=== PATIENT | male | born 1960 | race African-American/Black ===

== ENCOUNTER 2018-05-20 18:20 | Inpatient (IN) ==
[2018-05-20] MEDS ORDERED: ALBUTEROL/IPRATROPIUM 3 ML NEB RESP TX STA (18:46)
[2018-05-20] MEDS ORDERED: FUROSEMIDE 100 MG/10 ML VIAL IV STA (18:46)
[2018-05-20] MEDS ORDERED: methylPREDNISolone SOD SUC 125 MG/2 ML VIAL IV STA (18:46)
[2018-05-20] MEDS ORDERED: ONDANSETRON 4 MG/2 ML VIAL IV STA (18:46)
[2018-05-20] MEDS ORDERED: NITROGLYCERIN 2% OINT 1 INCH/GM PACK TOP STA (18:46)
[2018-05-20] MEDS ORDERED: MORPHINE 4 MG/1 ML VIAL IV STA (18:46)
[2018-05-20] MEDS ORDERED: DILTIAZEM 50 MG/10 ML VIAL IV STA (18:46)
[2018-05-20 18:56] LABS: Basophils % 0.5 % (0.0-0.8); Eosinophils % 0.5 % (0.00-10.9); Hematocrit 48.7 VOL% (42.0-52.0); Hemoglobin 16.3 GM/DL (14.0-18.0); Immature Granulocytes % 0.3 %; Immature Granulocytes Absolute 0.03 #; Lymphocytes # 2.8 10*3/uL (1.4-4.0); Mean Corpuscular HGB Conc 33.5 GM/DL (32-36); Mean Corpuscular Hemoglobin 30 PG (27-34); Mean Corpuscular Volume 90.9 FL (87-102); Mean Platelet Volume 11.3 FL (9.6-12.0); Monocytes % 11.7 % (1.7-12.7); Neutrophils # 4.8 10*3/uL (1.4-7.4); Platelet Count 224 T/CUMM (130-400); Red Blood Count 5.36 MC/CUMM (3.8-5.5); Red Cell Distribution Width 14.9 % (9.3-17.3); White Blood Count 8.7 T/CUMM (4-12)
[2018-05-20 19:10] LABS: INR 1.1; PT Patient Result 11.5 SECS
[2018-05-20 19:25] LABS: Albumin 3.1 G/DL (3.4-5.0); Bilirubin,Total 1.2 MG/DL (0.2-1.0); Calcium 8.9 MG/DL (8.5-10.1); Osmolality,Calculated 275.5 MOS/KG (273-304); Potassium 4.1 MMOL/L (3.5-5.1); Total Protein 7.9 G/DL (6.4-8.3)
[2018-05-20 19:27] LABS: Troponin I Only 0.131 NG/ML (0.00-0.045)
[2018-05-20 20:18] LABS: Apearance,Urine CLEAR (Clear); Bacteria,Urine Occasional /HPF (Few); Bilirubin,Urine Negative (Negative); Blood, Urine Small mg/dL (Negative); Glucose,Urine (UA) Negative (Negative); Ketones,Urine Negative (Negative); Nitrite,Urine Negative (Negative); Protein,Urine 100 MG/DL; RBC,Urine 1 /HPF (0-4); Urine Color Straw (Yellow); Urine Specific Gravity 1.004 (1.001-1.035); Urine Urobilinogen < 2.0 EU/DL (0.2-1.0); WBC,Urine <1 /HPF (0-6)
[2018-05-20 20:28] LABS: Barbiturates Screen,Urine Negative (Negative); Benzodiazepines Screen,Urine Negative (Negative); Cannabinoid Screen,Urine Positive (Negative); Opiate Screen,Urine Negative (Negative); Phencyclidine Screen,Urine Negative (Negative)
[2018-05-21] MEDS ORDERED: cloNIDine 0.1 MG TABLET PO PRN (00:03)
[2018-05-21] MEDS ORDERED: ZALEPLON 5 MG CAPSULE PO PRN (01:07)
[2018-05-21] MEDS ORDERED: ACETAMINOPHEN 325 MG TABLET PO PRN (01:07)
[2018-05-21] MEDS ORDERED: ONDANSETRON 4 MG/2 ML VIAL IV PRN (01:07)
[2018-05-21] MEDS ORDERED: MORPHINE 4 MG/1 ML VIAL IV PRN (01:07)
[2018-05-21] MEDS ORDERED: DOCUSATE SODIUM 100 MG CAPSULE PO PRN (01:07)
[2018-05-21 02:57] LABS: Basophils % 0.1 % (0.0-0.8); Hematocrit 46.6 VOL% (42.0-52.0); Hemoglobin 15.7 GM/DL (14.0-18.0); Immature Granulocytes % 0.7 %; Immature Granulocytes Absolute 0.05 #; Lymphocytes # 0.8 10*3/uL (1.4-4.0); Lymphocytes % 11.9 % (21.2-54.2); Mean Corpuscular HGB Conc 33.7 GM/DL (32-36); Mean Corpuscular Hemoglobin 31 PG (27-34); Mean Corpuscular Volume 91.4 FL (87-102); Mean Platelet Volume 11.6 FL (9.6-12.0); Monocytes # 0.1 10*3/uL (0.11-0.8); Monocytes % 1.7 % (1.7-12.7); Neutrophils % 85.6 % (38.7-73.9); Platelet Count 198 T/CUMM (130-400); Red Cell Distribution Width 14.8 % (9.3-17.3)
[2018-05-21 03:43] LABS: Calcium 8.6 MG/DL (8.5-10.1); Osmolality,Calculated 286.4 MOS/KG (273-304); Potassium 3.4 MMOL/L (3.5-5.1); Thyroid Stimulating Hormone 0.226 uIU/ml (0.358-3.74)
[2018-05-21 04:20] LABS: Hepatitis A Ab IgM Quant 0.21 Index; Hepatitis A Ab IgM Result Negative (Negative); Hepatitis B Core IgM Quant 0.16 Index; Hepatitis B Core IgM Result Negative (Negative); Hepatitis B Surface Ag Quant < 0.10 Index; Hepatitis B Surface Ag Result Negative (Negative); Hepatitis C Virus Ab Quant 0.12 Index; Hepatitis C Virus Ab Result Negative (Negative)
[2018-05-21] MEDS ORDERED: CARVEDILOL 3.125 MG TABLET PO SCH (08:00)
[2018-05-21] MEDS ORDERED: ENOXAPARIN 40 MG/0.4 ML SYRINGE SUBCUT SCH (09:00)
[2018-05-21] MEDS ORDERED: ASPIRIN EC 325 MG TABLET PO SCH (09:00)
[2018-05-21] MEDS: PANTOPRAZOLE 40 MG TABLET PO SCH (09:44)
[2018-05-21] MEDS: amLODIPine 5 MG TABLET PO SCH (09:44)
[2018-05-21] MEDS: FUROSEMIDE 40 MG/4 ML VIAL IV SCH ×2 (09:48→17:04)
[2018-05-21] MEDS: POTASSIUM CHLORIDE 20 MEQ TABLET PO PRN (09:53)
[2018-05-21] MEDS ORDERED: ENOXAPARIN 60 MG/0.6 ML SYRINGE SUBCUT ONE (11:00)
[2018-05-21] MEDS: NICOTINE 21 MG/24 HR PATCH TRANSDERM SCH (14:02)
[2018-05-21] MEDS: ASCORBIC ACID 500 MG TABLET PO SCH ×2 (14:03→20:14)
[2018-05-21] MEDS: POTASSIUM CHLORIDE RIDER 10 MEQ in PREMIX 1 EACH IV PRN ×3 (14:55→20:12)
[2018-05-21] MEDS ORDERED: CARVEDILOL 6.25 MG TABLET PO SCH (17:00)
[2018-05-21] MEDS: APIXABAN 5 MG TABLET PO SCH (20:13)
[2018-05-22] MEDS: FUROSEMIDE 40 MG/4 ML VIAL IV SCH ×2 (08:27→17:14)
[2018-05-22] MEDS: CARVEDILOL 12.5 MG TABLET PO SCH ×2 (08:50→17:31)
[2018-05-22] MEDS: APIXABAN 5 MG TABLET PO SCH ×2 (08:50→20:03)
[2018-05-22] MEDS: ASPIRIN EC 81 MG TABLET PO SCH (08:50)
[2018-05-22] MEDS: ASCORBIC ACID 500 MG TABLET PO SCH ×2 (08:50→20:03)
[2018-05-22] MEDS: amLODIPine 5 MG TABLET PO SCH (08:50)
[2018-05-22] MEDS: NICOTINE 21 MG/24 HR PATCH TRANSDERM SCH (09:00)
[2018-05-22 09:01] LABS: Osmolality,Calculated 283.4 MOS/KG (273-304); Potassium 4.4 MMOL/L (3.5-5.1)
[2018-05-22] MEDS: PANTOPRAZOLE 40 MG TABLET PO SCH (09:05)
[2018-05-23 02:55] LABS: Calcium 8.8 MG/DL (8.5-10.1); Osmolality,Calculated 279.7 MOS/KG (273-304); Potassium 3.8 MMOL/L (3.5-5.1)
[2018-05-23 02:59] LABS: Albumin 2.7 G/DL (3.4-5.0); Bilirubin,Direct 0.32 MG/DL (0.0-0.20); Bilirubin,Indirect 0.7 MG/DL (0.0-1.0); Total Protein 6.9 G/DL (6.4-8.3)
[2018-05-23] MEDS: FUROSEMIDE 40 MG/4 ML VIAL IV SCH (08:48)
[2018-05-23] MEDS: POTASSIUM CHLORIDE 20 MEQ TABLET PO PRN (08:50)
[2018-05-23] MEDS: ASPIRIN EC 81 MG TABLET PO SCH (08:50)
[2018-05-23] MEDS: CARVEDILOL 12.5 MG TABLET PO SCH (08:50)
[2018-05-23] MEDS: amLODIPine 5 MG TABLET PO SCH (08:51)
[2018-05-23] MEDS: APIXABAN 5 MG TABLET PO SCH (08:51)
[2018-05-23] MEDS: PANTOPRAZOLE 40 MG TABLET PO SCH (08:51)
[2018-05-23] MEDS: ASCORBIC ACID 500 MG TABLET PO SCH (08:51)
[2018-05-23] MEDS: NICOTINE 21 MG/24 HR PATCH TRANSDERM SCH (08:51)
[2018-05-23 12:30] VITALS: BP 98/73
== END 2018-05-23 17:10 | disposition home or self-care (01) | DRG 292 ==
LOC: N.ED 18:20 → N.EDINP 21:05 → SUATTDRO 21:05 → N.TELEN 22:41
PROVIDERS: ADMIT Internal Medicine; ATTEND Hospitalist

== ENCOUNTER 2019-05-13 14:48 | Inpatient (IN) ==
[2019-05-13 15:57] LABS: Basophils % 0.3 % (0.0-0.8); Eosinophils # 0.1 10*3/uL (0.0-0.87); Eosinophils % 0.9 % (0.00-10.9); Hematocrit 45.3 VOL% (42.0-52.0); Hemoglobin 14.8 GM/DL (14.0-18.0); Immature Granulocytes % 0.7 %; Immature Granulocytes Absolute 0.07 #; Lymphocytes # 1.7 10*3/uL (1.4-4.0); Mean Corpuscular HGB Conc 32.7 GM/DL (32-36); Mean Corpuscular Volume 91.3 FL (87-102); Mean Platelet Volume 10.5 FL (9.6-12.0); Monocytes % 14.7 % (1.7-12.7); Neutrophils % 67.4 % (38.7-73.9); Platelet Count 206 T/CUMM (130-400); Red Blood Count 4.96 MC/CUMM (3.8-5.5); White Blood Count 10.4 T/CUMM (4-12)
[2019-05-13 16:10] LABS: Bilirubin,Total 0.8 MG/DL (0.2-1.0); Calcium 9.3 MG/DL (8.5-10.1); Osmolality,Calculated 282.4 MOS/KG (273-304); Total Protein 7.7 G/DL (6.4-8.3)
[2019-05-13] MEDS ORDERED: LEVOFLOXACIN INJ 500 MG in PREMIX 1 EACH IV STA (18:37)
[2019-05-13] MEDS ORDERED: VANCOMYCIN INJ 1,000 MG in SODIUM CHLORIDE 0.9% 250 ML IV STA (19:09)
[2019-05-13] MEDS ORDERED: CLINDAMYCIN INJ 900 MG in PREMIX 1 EACH IV ONE (22:16)
[2019-05-13] MEDS ORDERED: ACETAMINOPHEN 325 MG TABLET PO PRN (22:41)
[2019-05-13] MEDS ORDERED: guaiFENesin/DM ER 600-30 MG TABLET PO PRN (22:41)
[2019-05-13] MEDS ORDERED: ONDANSETRON 4 MG/2 ML VIAL IV PRN (22:41)
[2019-05-13] MEDS ORDERED: DOCUSATE SODIUM 100 MG CAPSULE PO PRN (22:41)
[2019-05-13] MEDS ORDERED: tiZANidine 4 MG TABLET PO PRN (22:48)
[2019-05-13] MEDS ORDERED: VANCOMYCIN INJ 1,000 MG in SODIUM CHLORIDE 0.9% 250 ML IV ONE (23:30)
[2019-05-14] MEDS ORDERED: hydrALAZINE 20 MG/1 ML VIAL IV ONE (00:03)
[2019-05-14] MEDS: PIPERACILLIN/TAZOBACTAM 3,375 MG in SODIUM CHLORIDE 0.9% 100 ML IV SCH ×2 (01:13→17:16)
[2019-05-14 03:58] LABS: Basophils % 0.3 % (0.0-0.8); Eosinophils # 0.1 10*3/uL (0.0-0.87); Hematocrit 42.6 VOL% (42.0-52.0); Hemoglobin 14.3 GM/DL (14.0-18.0); Immature Granulocytes % 0.4 %; Immature Granulocytes Absolute 0.04 #; Lymphocytes # 1.2 10*3/uL (1.4-4.0); Lymphocytes % 13.4 % (21.2-54.2); Mean Corpuscular HGB Conc 33.6 GM/DL (32-36); Mean Corpuscular Volume 90.3 FL (87-102); Mean Platelet Volume 10.2 FL (9.6-12.0); Monocytes % 17.4 % (1.7-12.7); Neutrophils % 67.5 % (38.7-73.9); Platelet Count 213 T/CUMM (130-400); Red Blood Count 4.72 MC/CUMM (3.8-5.5); Red Cell Distribution Width 14.9 % (9.3-17.3); White Blood Count 9.3 T/CUMM (4-12)
[2019-05-14 04:26] LABS: Calcium 8.9 MG/DL (8.5-10.1); Osmolality,Calculated 285.1 MOS/KG (273-304)
[2019-05-14 04:34] LABS: Eosinophils 1 % (0-10); Lymphocytes 13 % (20-55); Segmented Neutrophils 70 % (50-85)
[2019-05-14 04:35] LABS: Platelet Estimate Normal; Reactive Lymphocytes 2+; Total Cells Counted 100
[2019-05-14] MEDS: ATORVASTATIN 20 MG TABLET PO SCH (08:00)
[2019-05-14] MEDS: CARVEDILOL 12.5 MG TABLET PO SCH ×2 (08:00→17:16)
[2019-05-14] MEDS: hydrALAZINE 20 MG/1 ML VIAL IV PRN ×2 (08:02→17:18)
[2019-05-14] MEDS: amLODIPine 5 MG TABLET PO SCH (09:00)
[2019-05-14] MEDS: ASPIRIN EC 81 MG TABLET PO SCH (09:00)
[2019-05-14] MEDS: LISINOPRIL 10 MG TABLET PO SCH (09:00)
[2019-05-14] MEDS: FUROSEMIDE 40 MG TABLET PO SCH (09:00)
[2019-05-14] MEDS ORDERED: LABETALOL 20 MG/4 ML SYRINGE IV PRN (10:08)
[2019-05-14] MEDS: VANCOMYCIN INJ 1,500 MG in SODIUM CHLORIDE 0.9% 500 ML IV SCH (13:13)
[2019-05-14] MEDS ORDERED: CLINDAMYCIN INJ 900 MG in PREMIX 1 EACH IV ONE (15:00)
[2019-05-14] MEDS ORDERED: LIDOCAINE 1% 20 ML VIAL ONE (15:34)
[2019-05-14] MEDS ORDERED: fentaNYL 100 MCG/2 ML VIAL ONE (16:23)
[2019-05-14] MEDS ORDERED: MIDAZOLAM 2 MG/2 ML VIAL ONE (16:23)
[2019-05-14] MEDS ORDERED: PROPOFOL 200 MG/20 ML VIAL IV ONE (16:23)
[2019-05-14] MEDS: PANTOPRAZOLE 40 MG TABLET PO SCH (17:02)
[2019-05-14] MEDS: ENOXAPARIN 40 MG/0.4 ML SYRINGE SUBCUT SCH (17:17)
[2019-05-14] MEDS: HYDROmorphone 2 MG/1 ML VIAL IV PRN ×2 (17:20→21:59)
[2019-05-15] MEDS: PIPERACILLIN/TAZOBACTAM 3,375 MG in SODIUM CHLORIDE 0.9% 100 ML IV SCH ×3 (01:44→19:50)
[2019-05-15] MEDS: HYDROmorphone 2 MG/1 ML VIAL IV PRN ×3 (03:59→19:53)
[2019-05-15] MEDS: CARVEDILOL 12.5 MG TABLET PO SCH ×2 (09:12→16:39)
[2019-05-15] MEDS: FUROSEMIDE 40 MG TABLET PO SCH (09:12)
[2019-05-15] MEDS: ATORVASTATIN 20 MG TABLET PO SCH (09:12)
[2019-05-15] MEDS: ASPIRIN EC 81 MG TABLET PO SCH (09:12)
[2019-05-15] MEDS: ENOXAPARIN 40 MG/0.4 ML SYRINGE SUBCUT SCH (09:12)
[2019-05-15] MEDS: PANTOPRAZOLE 40 MG TABLET PO SCH (09:12)
[2019-05-15] MEDS: amLODIPine 5 MG TABLET PO SCH ×2 (09:12→10:51)
[2019-05-15] MEDS: LISINOPRIL 10 MG TABLET PO SCH (09:12)
[2019-05-15] MEDS: VANCOMYCIN INJ 1,500 MG in SODIUM CHLORIDE 0.9% 500 ML IV SCH (12:00)
[2019-05-15] MEDS ORDERED: VANCOMYCIN INJ 2,000 MG in SODIUM CHLORIDE 0.9% 500 ML IV ONE (13:30)
[2019-05-16] MEDS: VANCOMYCIN INJ 1,500 MG in SODIUM CHLORIDE 0.9% 500 ML IV SCH ×2 (01:50→14:33)
[2019-05-16] MEDS: hydrALAZINE 20 MG/1 ML VIAL IV PRN (04:40)
[2019-05-16] MEDS: PIPERACILLIN/TAZOBACTAM 3,375 MG in SODIUM CHLORIDE 0.9% 100 ML IV SCH ×2 (04:40→11:03)
[2019-05-16] MEDS: HYDROmorphone 2 MG/1 ML VIAL IV PRN (08:00)
[2019-05-16] MEDS: FUROSEMIDE 40 MG TABLET PO SCH (08:38)
[2019-05-16] MEDS: amLODIPine 5 MG TABLET PO SCH (08:38)
[2019-05-16] MEDS: ATORVASTATIN 20 MG TABLET PO SCH (08:39)
[2019-05-16] MEDS: CARVEDILOL 12.5 MG TABLET PO SCH (08:39)
[2019-05-16] MEDS: ASPIRIN EC 81 MG TABLET PO SCH (08:39)
[2019-05-16] MEDS: ENOXAPARIN 40 MG/0.4 ML SYRINGE SUBCUT SCH (08:39)
[2019-05-16] MEDS: LISINOPRIL 10 MG TABLET PO SCH (08:39)
[2019-05-16] MEDS: PANTOPRAZOLE 40 MG TABLET PO SCH (08:39)
[2019-05-16 11:37] VITALS: BP 149/88
== END 2019-05-16 16:39 | disposition home health service (06) | DRG 501 ==
LOC: N.ED 14:48 → N.EDINP 22:41 → SUATTDRO 22:41 → N.3E 23:21
PROVIDERS: ADMIT Hospitalist; ATTEND Internal Medicine

== ENCOUNTER 2019-09-15 15:17 | Observation (INO) ==
[2019-09-15] MEDS ORDERED: ONDANSETRON ODT 4 MG TABLET PO STA (16:00)
[2019-09-15] MEDS ORDERED: LABETALOL 20 MG/4 ML SYRINGE IV STA (16:04)
[2019-09-15 16:40] LABS: Basophils % 0.3 % (0.0-0.8); Eosinophils # 0.1 10*3/uL (0.0-0.87); Eosinophils % 1.1 % (0.00-10.9); Hematocrit 50.8 VOL% (42.0-52.0); Hemoglobin 16.9 GM/DL (14.0-18.0); Immature Granulocytes % 0.5 %; Immature Granulocytes Absolute 0.05 #; Lymphocytes # 1.7 10*3/uL (1.4-4.0); Lymphocytes % 15.1 % (21.2-54.2); Mean Corpuscular HGB Conc 33.3 GM/DL (32-36); Mean Corpuscular Volume 94.4 FL (87-102); Mean Platelet Volume 9.8 FL (9.6-12.0); Monocytes % 8.2 % (1.7-12.7); Neutrophils % 74.8 % (38.7-73.9); Platelet Count 214 T/CUMM (130-400); Red Blood Count 5.38 MC/CUMM (3.8-5.5); Red Cell Distribution Width 15.2 % (9.3-17.3); White Blood Count 10.9 T/CUMM (4-12)
[2019-09-15] MEDS ORDERED: ONDANSETRON 4 MG/2 ML VIAL ONE (16:53)
[2019-09-15 16:55] LABS: Calcium 9.1 MG/DL (8.5-10.1); Osmolality,Calculated 280.5 MOS/KG (273-304)
[2019-09-15] MEDS ORDERED: ONDANSETRON 4 MG/2 ML VIAL IV STA (17:00)
[2019-09-15] MEDS ORDERED: hydrALAZINE 20 MG/1 ML VIAL IV STA (19:38)
[2019-09-15] MEDS ORDERED: niCARdipine 25 MG/10 ML VIAL IV ONE (20:27)
[2019-09-15] MEDS: niCARdipine INJ 25 MG in SODIUM CHLORIDE 0.9% 240 ML IV SCH ×2 (20:35→23:37)
[2019-09-15] MEDS ORDERED: ACETAMINOPHEN 325 MG TABLET PO PRN (20:53)
[2019-09-15] MEDS ORDERED: NICOTINE 21 MG/24 HR PATCH TRANSDERM PRN (20:53)
[2019-09-15] MEDS ORDERED: diphenhydrAMINE CAP 25 MG CAPSULE PO PRN (20:53)
[2019-09-15] MEDS ORDERED: ONDANSETRON 4 MG/2 ML VIAL IV PRN (20:53)
[2019-09-15] MEDS ORDERED: traZODone 50 MG TABLET PO PRN (20:53)
[2019-09-15] MEDS ORDERED: MORPHINE 4 MG/1 ML VIAL IV PRN (20:53)
[2019-09-15] MEDS ORDERED: BISACODYL 5 MG TABLET PO PRN (20:53)
[2019-09-15] MEDS ORDERED: tiZANidine 4 MG TABLET PO PRN (22:13)
[2019-09-15] MEDS: ENOXAPARIN 40 MG/0.4 ML SYRINGE SUBCUT SCH (22:20)
[2019-09-15] MEDS: carvediloL 25 MG TABLET PO SCH (22:24)
[2019-09-15 22:29] LABS: Risk Ratio 2.87; VLDL CHOLESTEROL 21.8 MG/DL
[2019-09-16] MEDS: niCARdipine INJ 25 MG in SODIUM CHLORIDE 0.9% 240 ML IV SCH ×3 (02:17→07:50)
[2019-09-16 04:54] LABS: Albumin 3.6 G/DL (3.4-5.0); Calcium 9.1 MG/DL (8.5-10.1); Osmolality,Calculated 284.3 MOS/KG (273-304); Total Protein 7.8 G/DL (6.4-8.3)
[2019-09-16] MEDS ORDERED: cloNIDine 0.1 MG TABLET PO PRN (07:51)
[2019-09-16] MEDS: LISINOPRIL 10 MG TABLET PO SCH (08:09)
[2019-09-16] MEDS: FUROSEMIDE 40 MG TABLET PO SCH (08:09)
[2019-09-16] MEDS: ASPIRIN EC 81 MG TABLET PO SCH (08:09)
[2019-09-16] MEDS: amLODIPine 5 MG TABLET PO SCH (08:10)
[2019-09-16] MEDS: carvediloL 25 MG TABLET PO SCH ×2 (08:10→16:20)
[2019-09-16] MEDS ORDERED: DICLOFENAC SODIUM 75 MG TABLET PO PRN (09:00)
[2019-09-16 10:23] LABS: Barbiturates Screen,Urine Negative (Negative); Benzodiazepines Screen,Urine Negative (Negative); Cannabinoid Screen,Urine Positive (Negative); Opiate Screen,Urine Negative (Negative); Phencyclidine Screen,Urine Negative (Negative)
[2019-09-16] MEDS ORDERED: ATORVASTATIN 20 MG TABLET PO SCH (21:00)
[2019-09-16] MEDS: ENOXAPARIN 40 MG/0.4 ML SYRINGE SUBCUT SCH (21:56)
[2019-09-17 05:58] LABS: Troponin I 0.046 NG/ML (0.00-0.045)
[2019-09-17 06:35] LABS: Calcium 8.6 MG/DL (8.5-10.1); Osmolality,Calculated 283.3 MOS/KG (273-304)
[2019-09-17] MEDS: amLODIPine 5 MG TABLET PO SCH (08:25)
[2019-09-17] MEDS: carvediloL 25 MG TABLET PO SCH (08:25)
[2019-09-17] MEDS: ASPIRIN EC 81 MG TABLET PO SCH (08:25)
[2019-09-17] MEDS: FUROSEMIDE 40 MG TABLET PO SCH (08:26)
[2019-09-17] MEDS: LISINOPRIL 10 MG TABLET PO SCH (08:26)
[2019-09-17] MEDS ORDERED: traMADol 50 MG TABLET PO PRN (10:51)
[2019-09-17] MEDS ORDERED: amLODIPine 10 MG TABLET PO SCH (10:53)
[2019-09-17 11:38] VITALS: BP 151/93
[2019-09-17] MEDS ORDERED: POTASSIUM BICARB EFFERVESCENT 25 MEQ TABLET PO ONE (12:00)
[2019-09-18] MEDS ORDERED: LOSARTAN 50 MG TABLET PO SCH (09:00)
== END 2019-09-17 11:53 | disposition home or self-care (01) ==
LOC: EDBD → EDUNIT# → N.EDINP 15:17 → N.ED 15:17 → SUATTDRO 20:53 → N.ICU 21:56 → N.2E 09-16 14:23
PROVIDERS: ADMIT Internal Medicine; ATTEND Internal Medicine

== ENCOUNTER 2020-12-29 11:03 | Observation (INO) ==
[2020-12-29] MEDS ORDERED: ONDANSETRON 4 MG/2 ML VIAL IV STA (11:24)
[2020-12-29] MEDS ORDERED: HYDROmorphone 2 MG/1 ML VIAL IV STA ×2 (11:24→14:16)
[2020-12-29 12:00] LABS: Basophils % 0.3 % (0.0-0.8); Hematocrit 52.4 VOL% (42.0-52.0); Hemoglobin 17.5 GM/DL (14.0-18.0); Immature Granulocytes % 0.5 %; Immature Granulocytes Absolute 0.06 #; Lymphocytes % 8.2 % (21.2-54.2); Mean Corpuscular HGB Conc 33.4 GM/DL (32-36); Mean Corpuscular Volume 90.8 FL (87-102); Mean Platelet Volume 10.5 FL (9.6-12.0); Platelet Count 217 T/CUMM (130-400); Red Blood Count 5.77 MC/CUMM (3.8-5.5); Red Cell Distribution Width 14.3 % (9.3-17.3); White Blood Count 11.8 T/CUMM (4-12)
[2020-12-29 12:11] LABS: Bilirubin,Urine Negative (Negative); Blood, Urine Negative (Negative); Glucose,Urine (UA) Negative (Negative); Ketones,Urine Negative (Negative); Mucus,Urine Occasional /LPF (Occasional); Nitrite,Urine Negative (Negative); Protein,Urine >=500 MG/DL; RBC,Urine 4 /HPF (0-4); Urine Appearance CLEAR (Clear); Urine Color Yellow (Yellow); Urine Urobilinogen < 2.0 EU/DL (0.2-1.0); WBC,Urine 1 /HPF (0-6)
[2020-12-29 12:43] LABS: Alanine Aminotransferase 62 U/L (16-61); Albumin 3.4 G/DL (3.4-5.0); Alkaline Phosphatase 96 U/L (45-117); Aspartate Amino Transferase 38 U/L (0-37); Blood Urea Nitrogen 13 MG/DL (7-18); Calcium 8.8 MG/DL (8.5-10.1); Carbon Dioxide 24 MMOL/L (21-32); Estimated Glom Filtration Rate 128 ML/MIN; Glucose 127 MG/DL (74-106); Osmolality,Calculated 278.5 MOS/KG (273-304); Potassium 3.9 MMOL/L (3.5-5.1); Sodium 139 MMOL/L (136-145); Total Protein 8.2 G/DL (6.4-8.3)
[2020-12-29] MEDS ORDERED: SODIUM CHLORIDE 0.9% 1,000 ML IV STA (12:57)
[2020-12-29] MEDS ORDERED: hydrALAZINE 20 MG/1 ML VIAL IV STA ×2 (13:29→14:16)
[2020-12-29] MEDS ORDERED: MAGNESIUM SULF RIDER 4 GM in PREMIX 1 EACH IV STA (15:02)
[2020-12-29] MEDS ORDERED: cefTRIAXone 1,000 MG in SODIUM CHLORIDE 0.9% 100 ML IV STA (15:04)
[2020-12-29] MEDS ORDERED: ONDANSETRON 4 MG/2 ML VIAL IV PRN (15:27)
[2020-12-29] MEDS ORDERED: ACETAMINOPHEN 325 MG TABLET PO PRN (15:27)
[2020-12-29] MEDS ORDERED: GLUCAGON 1 MG VIAL IM PRN (15:27)
[2020-12-29] MEDS ORDERED: DEXTROSE 50% 25 GM/50 ML VIAL IV PRN (15:27)
[2020-12-29] MEDS: MAGNESIUM SULF RIDER 2 GM in PREMIX 1 EACH IV SCH ×2 (16:30→18:14)
[2020-12-29] MEDS: SODIUM CHLORIDE 0.9% 1,000 ML IV SCH (18:07)
[2020-12-29 18:50] LABS: CKMB % 5.3 %
[2020-12-29 18:51] LABS: Troponin I 0.058 NG/ML (0.00-0.045)
[2020-12-29] MEDS ORDERED: LACTULOSE 20 GM/30 ML UDCUP PO ONE (19:45)
[2020-12-29] MEDS ORDERED: LACTULOSE 20 GM/30 ML UDCUP PO PRN (19:45)
[2020-12-29] MEDS: PANTOPRAZOLE 40 MG VIAL IV SCH (21:19)
[2020-12-29] MEDS: DOCUSATE SODIUM 100 MG CAPSULE PO SCH (21:19)
[2020-12-29] MEDS: hydrALAZINE 20 MG/1 ML VIAL IV PRN (21:20)
[2020-12-29] MEDS: carvediloL 25 MG TABLET PO SCH (21:20)
[2020-12-29] MEDS: DOCUSATE SODIUM 100 MG/10 ML UDCUP PO SCH (21:39)
[2020-12-30] MEDS: hydrALAZINE 20 MG/1 ML VIAL IV PRN ×2 (03:49→23:52)
[2020-12-30 05:37] LABS: Basophils % 0.2 % (0.0-0.8); Eosinophils % 0.1 % (0.00-10.9); Hematocrit 49.6 VOL% (42.0-52.0); Hemoglobin 16.3 GM/DL (14.0-18.0); Immature Granulocytes % 0.6 %; Immature Granulocytes Absolute 0.09 #; Lymphocytes # 1.5 10*3/uL (1.4-4.0); Lymphocytes % 9.2 % (21.2-54.2); Mean Corpuscular HGB Conc 32.9 GM/DL (32-36); Mean Corpuscular Volume 93.2 FL (87-102); Monocytes % 13.8 % (1.7-12.7); Neutrophils % 76.1 % (38.7-73.9); Platelet Count 236 T/CUMM (130-400); Red Blood Count 5.32 MC/CUMM (3.8-5.5); Red Cell Distribution Width 14.6 % (9.3-17.3); White Blood Count 15.8 T/CUMM (4-12)
[2020-12-30 06:05] LABS: Calcium 8.8 MG/DL (8.5-10.1); Potassium 3.9 MMOL/L (3.5-5.1)
[2020-12-30 06:11] LABS: CKMB % 3.7 %
[2020-12-30] MEDS ORDERED: PANTOPRAZOLE 40 MG TABLET PO SCH (09:00)
[2020-12-30] MEDS: LOSARTAN 50 MG TABLET PO SCH (10:03)
[2020-12-30] MEDS: ATORVASTATIN 20 MG TABLET PO SCH (10:03)
[2020-12-30] MEDS: carvediloL 25 MG TABLET PO SCH ×2 (10:03→16:20)
[2020-12-30] MEDS: DOCUSATE SODIUM 100 MG CAPSULE PO SCH ×2 (10:03→20:51)
[2020-12-30] MEDS: amLODIPine 10 MG TABLET PO SCH (10:04)
[2020-12-30] MEDS: PANTOPRAZOLE 40 MG VIAL IV SCH ×2 (10:07→20:50)
[2020-12-30] MEDS: SODIUM CHLORIDE 0.9% 1,000 ML IV SCH ×2 (10:10→23:47)
[2020-12-30] MEDS: DOCUSATE SODIUM 100 MG/10 ML UDCUP PO SCH ×2 (10:10→20:51)
[2020-12-30] MEDS: ASPIRIN EC 81 MG TABLET PO SCH (10:10)
[2020-12-30] MEDS: POLYETHYLENE GLYCOL POWDER 17 GM PACK PO SCH (10:11)
[2020-12-30] MEDS ORDERED: traMADol 50 MG TABLET PO PRN (11:22)
[2020-12-30] MEDS ORDERED: MELOXICAM 7.5 MG TABLET PO PRN (11:22)
[2020-12-30] MEDS: ENOXAPARIN 100 MG/ML SYRINGE SUBCUT SCH ×2 (12:45→23:53)
[2020-12-30] MEDS ORDERED: APIXABAN 5 MG TABLET PO SCH (21:00)
[2020-12-31 03:38] LABS: Basophils % 0.3 % (0.0-0.8); Eosinophils % 0.2 % (0.00-10.9); Hematocrit 46.3 VOL% (42.0-52.0); Hemoglobin 15.3 GM/DL (14.0-18.0); Immature Granulocytes % 0.4 %; Immature Granulocytes Absolute 0.05 #; Lymphocytes # 1.7 10*3/uL (1.4-4.0); Mean Corpuscular Volume 93.2 FL (87-102); Mean Platelet Volume 11.1 FL (9.6-12.0); Monocytes % 9.5 % (1.7-12.7); Neutrophils % 74.6 % (38.7-73.9); Platelet Count 168 T/CUMM (130-400); Red Blood Count 4.97 MC/CUMM (3.8-5.5); Red Cell Distribution Width 14.9 % (9.3-17.3); White Blood Count 11.6 T/CUMM (4-12)
[2020-12-31 04:09] LABS: Risk Ratio 2.93; VLDL CHOLESTEROL 22.6 MG/DL
[2020-12-31 04:11] LABS: Calcium 8.2 MG/DL (8.5-10.1); Osmolality,Calculated 274.8 MOS/KG (273-304); Potassium 3.8 MMOL/L (3.5-5.1)
[2020-12-31 06:17] LABS: Troponin I 0.096 NG/ML (0.00-0.045)
[2020-12-31] MEDS ORDERED: FUROSEMIDE 40 MG TABLET PO SCH (09:00)
[2020-12-31] MEDS: amLODIPine 10 MG TABLET PO SCH (10:00)
[2020-12-31] MEDS: LOSARTAN 50 MG TABLET PO SCH (10:04)
[2020-12-31] MEDS: ATORVASTATIN 20 MG TABLET PO SCH (10:04)
[2020-12-31] MEDS: carvediloL 25 MG TABLET PO SCH (10:04)
[2020-12-31] MEDS: DOCUSATE SODIUM 100 MG CAPSULE PO SCH (10:05)
[2020-12-31] MEDS: ASPIRIN EC 81 MG TABLET PO SCH (10:05)
[2020-12-31] MEDS: DOCUSATE SODIUM 100 MG/10 ML UDCUP PO SCH (10:06)
[2020-12-31] MEDS: POLYETHYLENE GLYCOL POWDER 17 GM PACK PO SCH (10:06)
[2020-12-31] MEDS: PANTOPRAZOLE 40 MG VIAL IV SCH (10:09)
[2020-12-31 11:44] VITALS: BP 142/96
[2020-12-31] MEDS: ENOXAPARIN 100 MG/ML SYRINGE SUBCUT SCH (12:52)
[2020-12-31] MEDS: SODIUM CHLORIDE 0.9% 1,000 ML IV SCH (15:55)
== END 2020-12-31 15:08 | disposition home or self-care (01) ==
LOC: N.ED 11:03 → N.EDINP 11:03 → N.3E 17:41
PROVIDERS: ADMIT Internal Medicine; ATTEND Internal Medicine

== ENCOUNTER 2021-08-05 13:43 | Inpatient (IN) ==
[2021-08-05 17:30] LABS: Basophils % 0.4 % (0.0-0.8); Eosinophils # 0.1 10*3/uL (0.0-0.87); Eosinophils % 1.1 % (0.00-10.9); Hematocrit 51.1 VOL% (42.0-52.0); Hemoglobin 16.7 GM/DL (14.0-18.0); Immature Granulocytes % 0.4 %; Immature Granulocytes Absolute 0.03 #; Lymphocytes # 2.2 10*3/uL (1.4-4.0); Lymphocytes % 30.1 % (21.2-54.2); Mean Corpuscular HGB Conc 32.7 GM/DL (32-36); Mean Corpuscular Volume 90.1 FL (87-102); Mean Platelet Volume 10.2 FL (9.6-12.0); Monocytes % 14.5 % (1.7-12.7); Neutrophils % 53.5 % (38.7-73.9); Platelet Count 226 T/CUMM (130-400); Red Blood Count 5.67 MC/CUMM (3.8-5.5); Red Cell Distribution Width 15.2 % (9.3-17.3); White Blood Count 7.5 T/CUMM (4-12)
[2021-08-05 17:49] LABS: Albumin 3.3 G/DL (3.4-5.0); Bilirubin,Total 0.9 MG/DL (0.20-1.00); Calcium 9.2 MG/DL (8.5-10.1); Potassium 3.8 MMOL/L (3.5-5.1)
[2021-08-05 17:53] LABS: Barbiturates Screen,Urine Negative (Negative); Benzodiazepines Screen,Urine Negative (Negative); Cannabinoid Screen,Urine Positive (Negative); Opiate Screen,Urine Negative (Negative); Phencyclidine Screen,Urine Negative (Negative)
[2021-08-05] MEDS ORDERED: LABETALOL 20 MG/4 ML SYRINGE IV PRN (18:29)
[2021-08-05] MEDS ORDERED: ENOXAPARIN 40 MG/0.4 ML SYRINGE SUBCUT SCH (18:30)
[2021-08-05 18:45] LABS: Sedimentation Rate-Westergren 14 MM/HR (0-20)
[2021-08-05] MEDS: ASCORBIC ACID 500 MG TABLET PO SCH (22:01)
[2021-08-05] MEDS: carvediloL 12.5 MG TABLET PO SCH (22:01)
[2021-08-05] MEDS: ATORVASTATIN 20 MG TABLET PO SCH (22:01)
[2021-08-05] MEDS: buPROPion SR 150 MG TABLET PO SCH (22:01)
[2021-08-05] MEDS ORDERED: ENOXAPARIN 100 MG/ML SYRINGE SUBCUT ONE (23:42)
[2021-08-06 01:16] LABS: Basophils % 0.4 % (0.0-0.8); Eosinophils # 0.1 10*3/uL (0.0-0.87); Eosinophils % 1.2 % (0.00-10.9); Hematocrit 47.9 VOL% (42.0-52.0); Hemoglobin 16.2 GM/DL (14.0-18.0); Immature Granulocytes % 0.5 %; Immature Granulocytes Absolute 0.04 #; Lymphocytes # 3.1 10*3/uL (1.4-4.0); Lymphocytes % 37.8 % (21.2-54.2); Mean Corpuscular HGB Conc 33.8 GM/DL (32-36); Mean Corpuscular Volume 90.4 FL (87-102); Mean Platelet Volume 10.3 FL (9.6-12.0); Monocytes % 17.4 % (1.7-12.7); Neutrophils % 42.7 % (38.7-73.9); Platelet Count 220 T/CUMM (130-400); Red Cell Distribution Width 15.2 % (9.3-17.3); White Blood Count 8.2 T/CUMM (4-12)
[2021-08-06 01:38] LABS: Risk Ratio 3.57; VLDL Cholesterol 25.2 MG/DL
[2021-08-06 02:25] LABS: Lymphocytes 35 % (20-55); Platelet Estimate Normal; Segmented Neutrophils 51 % (50-85); Total Cells Counted 100
[2021-08-06 05:28] LABS: Folate 19.77 NG/ML (5.38-24.0)
[2021-08-06] MEDS: VALSARTAN 160 MG TABLET PO SCH (08:23)
[2021-08-06] MEDS: THIAMINE 100 MG TABLET PO SCH (08:23)
[2021-08-06] MEDS: hydroCHLOROthiazide 25 MG TABLET PO SCH (08:23)
[2021-08-06] MEDS: amLODIPine 5 MG TABLET PO SCH (08:24)
[2021-08-06] MEDS: carvediloL 12.5 MG TABLET PO SCH (08:24)
[2021-08-06] MEDS: FUROSEMIDE 40 MG TABLET PO SCH (08:24)
[2021-08-06] MEDS: ASCORBIC ACID 500 MG TABLET PO SCH ×2 (08:24→20:37)
[2021-08-06] MEDS: buPROPion SR 150 MG TABLET PO SCH ×2 (08:24→20:38)
[2021-08-06] MEDS: MULTIVITAMIN (CENTRUM) TABLET PO SCH (08:24)
[2021-08-06] MEDS: FOLIC ACID 1 MG TABLET PO SCH (08:24)
[2021-08-06] MEDS ORDERED: ASPIRIN 325 MG TABLET PO SCH (09:00)
[2021-08-06] MEDS ORDERED: ENOXAPARIN 100 MG/ML SYRINGE SUBCUT SCH (12:00)
[2021-08-06] MEDS: APIXABAN 5 MG TABLET PO SCH ×2 (13:11→20:38)
[2021-08-06] MEDS: carvediloL 6.25 MG TABLET PO SCH (17:45)
[2021-08-06] MEDS: ATORVASTATIN 20 MG TABLET PO SCH (20:37)
[2021-08-07] MEDS: LORazepam 1 MG TABLET PO PRN ×2 (01:30→06:05)
[2021-08-07 04:27] LABS: Basophils % 0.5 % (0.0-0.8); Eosinophils # 0.1 10*3/uL (0.0-0.87); Eosinophils % 1.2 % (0.00-10.9); Hematocrit 50.7 VOL% (42.0-52.0); Hemoglobin 16.6 GM/DL (14.0-18.0); Immature Granulocytes % 0.5 %; Immature Granulocytes Absolute 0.04 #; Lymphocytes # 2.2 10*3/uL (1.4-4.0); Lymphocytes % 25.6 % (21.2-54.2); Mean Corpuscular HGB Conc 32.7 GM/DL (32-36); Mean Corpuscular Volume 90.9 FL (87-102); Mean Platelet Volume 10.3 FL (9.6-12.0); Monocytes % 15.4 % (1.7-12.7); Neutrophils % 56.8 % (38.7-73.9); Platelet Count 225 T/CUMM (130-400); Red Blood Count 5.58 MC/CUMM (3.8-5.5); Red Cell Distribution Width 14.9 % (9.3-17.3); White Blood Count 8.7 T/CUMM (4-12)
[2021-08-07 04:54] LABS: Calcium 9.2 MG/DL (8.5-10.1); Potassium 3.6 MMOL/L (3.5-5.1)
[2021-08-07] MEDS: VALSARTAN 160 MG TABLET PO SCH (09:30)
[2021-08-07] MEDS: ASCORBIC ACID 500 MG TABLET PO SCH ×2 (09:30→21:41)
[2021-08-07] MEDS: APIXABAN 5 MG TABLET PO SCH ×2 (09:31→21:41)
[2021-08-07] MEDS: amLODIPine 5 MG TABLET PO SCH (09:31)
[2021-08-07] MEDS: MULTIVITAMIN (CENTRUM) TABLET PO SCH (09:31)
[2021-08-07] MEDS: FOLIC ACID 1 MG TABLET PO SCH (09:31)
[2021-08-07] MEDS: FUROSEMIDE 40 MG TABLET PO SCH (09:31)
[2021-08-07] MEDS: hydroCHLOROthiazide 25 MG TABLET PO SCH (09:31)
[2021-08-07] MEDS: ASPIRIN EC 81 MG TABLET PO SCH (09:32)
[2021-08-07] MEDS: THIAMINE 100 MG TABLET PO SCH (09:32)
[2021-08-07] MEDS: buPROPion SR 150 MG TABLET PO SCH ×2 (09:54→21:41)
[2021-08-07] MEDS: carvediloL 6.25 MG TABLET PO SCH ×2 (09:54→17:36)
[2021-08-07] MEDS: ATORVASTATIN 20 MG TABLET PO SCH (21:41)
[2021-08-08 05:09] LABS: Basophils # 0.1 10*3/uL (0.0-0.2); Basophils % 0.6 % (0.0-0.8); Eosinophils # 0.1 10*3/uL (0.0-0.87); Eosinophils % 1.1 % (0.00-10.9); Hematocrit 52.6 VOL% (42.0-52.0); Hemoglobin 17.3 GM/DL (14.0-18.0); Immature Granulocytes % 0.5 %; Immature Granulocytes Absolute 0.04 #; Lymphocytes # 2.4 10*3/uL (1.4-4.0); Lymphocytes % 29.4 % (21.2-54.2); Mean Corpuscular HGB Conc 32.9 GM/DL (32-36); Mean Corpuscular Volume 89.9 FL (87-102); Mean Platelet Volume 9.9 FL (9.6-12.0); Monocytes % 14.5 % (1.7-12.7); Neutrophils % 53.9 % (38.7-73.9); Platelet Count 241 T/CUMM (130-400); Red Blood Count 5.85 MC/CUMM (3.8-5.5); Red Cell Distribution Width 15.4 % (9.3-17.3); White Blood Count 8.1 T/CUMM (4-12)
[2021-08-08 05:31] LABS: Band Neutrophils 1 % (0-10); Lymphocytes 28 % (20-55); Platelet Estimate Normal; Segmented Neutrophils 63 % (50-85); Total Cells Counted 100
[2021-08-08 05:33] LABS: Calcium 9.4 MG/DL (8.5-10.1); Osmolality,Calculated 273.1 MOS/KG (273-304); Potassium 3.7 MMOL/L (3.5-5.1)
[2021-08-08 08:04] VITALS: BP 149/97
[2021-08-08] MEDS: VALSARTAN 160 MG TABLET PO SCH (09:03)
[2021-08-08] MEDS: ASPIRIN EC 81 MG TABLET PO SCH (09:03)
[2021-08-08] MEDS: FOLIC ACID 1 MG TABLET PO SCH (09:03)
[2021-08-08] MEDS: ASCORBIC ACID 500 MG TABLET PO SCH (09:03)
[2021-08-08] MEDS: FUROSEMIDE 40 MG TABLET PO SCH (09:03)
[2021-08-08] MEDS: hydroCHLOROthiazide 25 MG TABLET PO SCH (09:03)
[2021-08-08] MEDS: APIXABAN 5 MG TABLET PO SCH (09:03)
[2021-08-08] MEDS: THIAMINE 100 MG TABLET PO SCH (09:04)
[2021-08-08] MEDS: carvediloL 6.25 MG TABLET PO SCH (09:04)
[2021-08-08] MEDS: buPROPion SR 150 MG TABLET PO SCH (09:04)
[2021-08-08] MEDS: MULTIVITAMIN (CENTRUM) TABLET PO SCH (09:04)
[2021-08-08] MEDS: amLODIPine 5 MG TABLET PO SCH (09:04)
== END 2021-08-08 11:00 | disposition home health service (06) | DRG 64 ==
LOC: N.ED 13:43 → N.EDINP 13:43 → N.TELEN 21:19
PROVIDERS: ADMIT Internal Medicine; ATTEND Internal Medicine

== ENCOUNTER 2021-11-20 15:09 | Inpatient (IN) ==
[2021-11-20] MEDS ORDERED: ONDANSETRON 4 MG/2 ML VIAL IV STA (18:36)
[2021-11-20] MEDS ORDERED: ASPIRIN 325 MG TABLET PO STA (18:36)
[2021-11-20 18:49] LABS: Basophils % 0.5 % (0.0-0.8); Eosinophils # 0.1 10*3/uL (0.0-0.87); Eosinophils % 1.2 % (0.00-10.9); Hemoglobin 14.5 GM/DL (14.0-18.0); Immature Granulocytes % 0.6 %; Immature Granulocytes Absolute 0.05 #; Lymphocytes # 2.9 10*3/uL (1.4-4.0); Lymphocytes % 33.3 % (21.2-54.2); Mean Corpuscular HGB Conc 32.2 GM/DL (32-36); Mean Platelet Volume 10.3 FL (9.6-12.0); Neutrophils % 50.4 % (38.7-73.9); Platelet Count 224 T/CUMM (130-400); Red Blood Count 4.89 MC/CUMM (3.8-5.5); Red Cell Distribution Width 15.9 % (9.3-17.3); White Blood Count 8.6 T/CUMM (4-12)
[2021-11-20 18:54] LABS: PT Patient Result 11.3 SECS (10.5-12.0)
[2021-11-20 19:02] LABS: Alanine Aminotransferase 57 U/L (16-61); Albumin 3.5 G/DL (3.4-5.0); Alkaline Phosphatase 101 U/L (45-117); Aspartate Amino Transferase 33 U/L (0-37); Blood Urea Nitrogen 20 MG/DL (7-18); Calcium 9.3 MG/DL (8.5-10.1); Carbon Dioxide 23 MMOL/L (21-32); Estimated Glom Filtration Rate 99 ML/MIN; Glucose 87 MG/DL (74-106); Osmolality,Calculated 282.3 MOS/KG (273-304); Sodium 141 MMOL/L (136-145); Total Protein 7.7 G/DL (6.4-8.2)
[2021-11-20 20:29] LABS: Bilirubin,Urine Negative (Negative); Blood, Urine Negative (Negative); Glucose,Urine (UA) Negative (Negative); Ketones,Urine Negative (Negative); Mucus,Urine Occasional /LPF (Occasional); Nitrite,Urine Negative (Negative); Protein,Urine 30 MG/DL; RBC,Urine 2 /HPF (0-4); Squamous Epithelial Cell,Urine Occasional /HPF (0-10); Urine Appearance CLEAR (Clear); Urine Color Yellow (Yellow); Urine Specific Gravity 1.017 (1.001-1.035); Urine Urobilinogen < 2.0 EU/DL (<2.0)
[2021-11-20 21:11] LABS: Barbiturates Screen,Urine Negative (Negative); Benzodiazepines Screen,Urine Negative (Negative); Cannabinoid Screen,Urine Negative (Negative); Opiate Screen,Urine Negative (Negative); Phencyclidine Screen,Urine Negative (Negative)
[2021-11-20] MEDS ORDERED: DEXTROSE 50% 25 GM/50 ML SYRINGE IV PRN (21:34)
[2021-11-20] MEDS ORDERED: GLUCAGON 1 MG VIAL IM PRN (21:34)
[2021-11-20] MEDS ORDERED: ONDANSETRON 4 MG/2 ML VIAL IV PRN (21:34)
[2021-11-20] MEDS ORDERED: ACETAMINOPHEN 325 MG TABLET PO PRN (21:34)
[2021-11-20] MEDS ORDERED: hydrALAZINE 20 MG/1 ML VIAL IV PRN (21:34)
[2021-11-20] MEDS ORDERED: NICOTINE 21 MG/24 HR PATCH TRANSDERM PRN (22:12)
[2021-11-21 05:53] LABS: Calcium 8.9 MG/DL (8.5-10.1); Osmolality,Calculated 279.4 MOS/KG (273-304); Potassium 3.5 MMOL/L (3.5-5.1); Risk Ratio 2.96; Thyroid Stimulating Hormone 0.741 uIU/ml (0.358-3.74); VLDL Cholesterol 19.8 MG/DL
[2021-11-21] MEDS: ASPIRIN EC 81 MG TABLET PO SCH (08:12)
[2021-11-21] MEDS: APIXABAN 5 MG TABLET PO SCH ×2 (08:12→20:52)
[2021-11-21] MEDS: PANTOPRAZOLE 40 MG TABLET PO SCH (08:12)
[2021-11-21] MEDS: INSULIN LISPRO 100 UNIT/ML SUBCUT SCH ×4 (08:14→20:52)
[2021-11-21] MEDS: ASCORBIC ACID 500 MG TABLET PO SCH (20:52)
[2021-11-21] MEDS ORDERED: ATORVASTATIN 40 MG TABLET PO SCH (21:00)
[2021-11-22] MEDS: INSULIN LISPRO 100 UNIT/ML SUBCUT SCH ×3 (08:51→17:45)
[2021-11-22] MEDS: ASCORBIC ACID 500 MG TABLET PO SCH (10:47)
[2021-11-22] MEDS: APIXABAN 5 MG TABLET PO SCH (10:47)
[2021-11-22] MEDS: PANTOPRAZOLE 40 MG TABLET PO SCH (10:47)
[2021-11-22] MEDS: ASPIRIN EC 81 MG TABLET PO SCH (10:47)
[2021-11-22 12:21] VITALS: BP 150/96
== END 2021-11-22 16:03 | disposition home or self-care (01) | DRG 65 ==
LOC: N.ED 15:09 → N.EDINP 21:34 → N.TELEN 23:18
PROVIDERS: ADMIT Hospitalist; ATTEND Hospitalist